=== PATIENT | male | born 1990 | race Caucasian/White ===

== ENCOUNTER 2017-09-26 20:23 | Emergency (ER) | payer MEDICAID ==
[~2017-09-26] VITALS: Ht 175.3 cm; Wt 95.3 kg
[2017-09-26 20:33] VITALS: BP 154/85
--- NOTE | 2017-09-26 20:37 | NUR ---
EKG SHOWN TO DR. EVANGELISTA AND SIGNED. PT OKAY TO WAIT IN ER LOBBY FOR A BED.
--- NOTE | 2017-09-26 20:59 | NUR ---
SENT FOR XRAY WITH [employer] , AMBULATORY AND , IN STABLE CONDITION.
--- NOTE | 2017-09-27 00:35 | NUR ---
Patient ambulated to bed 1. RN evaluating patient at bedside.
--- NOTE | 2017-09-27 00:36 | NUR ---
PATIENT IS A 27 Y/O MALE WHO PRESENTS TO THE ED C/O CHEST PAIN. PT STATES, "I HAVE BEEN HAVING THIS FOR A WHILE NOW." PT REPORTS 2/10 INTERMITTENT ACHING CHEST PAIN THAT DOES NOT RADIATE. PT DENIES SOB, N/V/D. PT AAOX4, RR EVEN/UNLABORED. PT REPOSITIONED FOR COMFORT, BED IN LOWEST POSITION. ER MD DR. EVANGELISTA NOTIFIED. WILL CONTINUE TO MONITOR.
[2017-09-27 01:15] VITALS: BP 149/80
== END 2017-09-27 01:15 | disposition home or self-care (01) ==
LOC: MED 20:23
DX: R07.9 Chest pain, unspecified (principal)
CPT/HCPCS: 71020; 93005; 99284

== ENCOUNTER 2022-02-26 10:47 | Emergency (ER) | payer OTHER ==
[~2022-02-26] VITALS: Ht 175.3 cm; Wt 108.9 kg
[2022-02-26 10:48] VITALS: BP 164/97
--- NOTE | 2022-02-26 10:54 | NUR ---
PATIENT AMBULATED TO BED 3.
--- NOTE | 2022-02-26 10:56 | NUR ---
PT AMBULATED TO ER BED 3 WITH A STEADY GAIT.
--- NOTE | 2022-02-26 11:05 | NUR ---
32YO MALE PT C/O LEFT UPPER ABDOMINAL PAIN WITH NO RADIATION. PT STATES INCONSISTENT PAIN X4 DAYS, PAIN AT MOST IS 6/10 WHEN BENDING AT WAIST. PT STATES FEELING "TIGHT LIKE SOMEONE IS GRABBING". PT STATES FEELING CONSTIPATED , LAST BOWEL BEING THIS MORNING AND DAY PRIOR TO TODAY. PT DENIES TAKING MEDICATION TO RELIEF PAIN. PT ABDOMEN TENDER TO TOUCH, NON DISTENDED. BOWEL SOUNDS ACTIVE X4. PT DENIES BACK OR CHEST PAIN . DENIES N/V/D OR FEVERS. PT AAOX4, VITALS WITHIN NORMAL RANGE. PT SITTING IN CHAIR AT BEDSIDE FOR COMFORT. NMHX NKA
[2022-02-26] MEDS ORDERED: DICYCLOMINE HCL LIQUID 20 MG, ALUMINUM HYD/MAG/SIMETHICONE 30 ML, LIDOCAINE VISCOUS 2% ... PO ONE ×3 (11:10)
[2022-02-26] MEDS ORDERED: DICYCLOMINE HCL LIQUID 10 MG/5 ML UDC ONE (11:15)
[2022-02-26] MEDS ORDERED: ALUMINUM HYD/MAG/SIMETHICONE 30 ML UDC ONE (11:15)
[2022-02-26] MEDS ORDERED: KETOROLAC 60 MG/2 ML VIAL IM ONE (11:50)
--- NOTE | 2022-02-26 12:10 | NUR ---
Note undone in EDM - 02/26/22 at 1212 by [facility] Patient discharged with v/s stable. Written and verbal after care instructions FOR ANKLE FRACTURE given and explained. Patient alert, oriented and verbalized understanding of instructions. Wheel Chair Assisted by EMT WITH parent. All questions addressed prior to discharge. ID band removed. Patient advised to follow up with PMD. Rx of IBUPROFEN given. Opportunity to ask questions provided and answered.
[2022-02-26] MEDS ORDERED: IBUP-2213 PO (12:21)
[2022-02-26] MEDS ORDERED: OMEP40EC24 PO (12:21)
--- NOTE | 2022-02-26 12:28 | NUR ---
Patient discharged with v/s stable. Written and verbal after care instructions FOR ABDOMINAL PAIN given and explained. Patient alert, oriented and verbalized understanding of instructions. Ambulatory with steady gait. All questions addressed prior to discharge. ID band removed. Patient advised to follow up with PMD. Rx of IBUPROFEN AND OMEPRAZOLE given. Opportunity to ask questions provided and answered.
--- NOTE | 2022-02-26 12:31 | NUR ---
The patient's care was reviewed and supervised by Jenelle Lama RN.
== END 2022-02-26 12:28 | disposition home or self-care (01) ==
LOC: MED 10:47
DX: R10.12 Left upper quadrant pain (principal)
CPT/HCPCS: 81002; 96372; 99283; J1885

== ENCOUNTER 2023-01-26 22:11 | Emergency (ER) | payer OTHER ==
[~2023-01-26] VITALS: Ht 177.8 cm; Wt 117.9 kg
[~2023-01-26 22:11] MED LIST: IBUP-2213 PO; OMEP40EC24 PO
[2023-01-26 22:46] VITALS: BP 176/86
--- NOTE | 2023-01-27 00:35 | NUR ---
PT TO BED 4
--- NOTE | 2023-01-27 01:15 | NUR ---
c/o bug bite on back. happened . per pt, feeling lightheaded since. per pt, pmhx liver disease, denies any allergies.
--- NOTE | 2023-01-27 01:15 | NUR ---
IS AT THE BEDSIDE.
[2023-01-27] MEDS ORDERED: DOXY-690 PO (01:29)
[2023-01-27 01:35] VITALS: BP 150/87
--- NOTE | 2023-01-27 01:35 | NUR ---
Patient discharged with v/s stable. Written and verbal after care instructions given and explained. Patient alert, oriented and verbalized understanding of instructions. Ambulatory with steady gait. All questions addressed prior to discharge. ID band removed. Patient advised to follow up with PMD. Rx of VIBRAMYCIN given. Patient educated on indication of medication including possible reaction and side effects. Opportunity to ask questions provided and answered.
== END 2023-01-27 01:35 | disposition home or self-care (01) ==
LOC: MED 22:11
DX: L03.312 Cellulitis of back [any part except buttock and flank] (principal); Z79.899 Other long term (current) drug therapy; Z79.2 Long term (current) use of antibiotics; Z79.1 Long term (current) use of non-steroidal anti-inflammatories (NSAID)
CPT/HCPCS: 99283